=== PATIENT | male | born 1955 | race Caucasian/White ===

== ENCOUNTER 2019-10-06 20:36 | Outpatient (CLI) | payer MEDICARE | END 2019-10-06 23:59 | disposition EMS.NT | LOC: EMS 20:36 | PROVIDERS: ATTEND Surgery | DX: M54.9 Dorsalgia, unspecified (principal) ==

== ENCOUNTER 2019-10-06 21:59 | Emergency (ER) | payer MEDICARE ==
--- NOTE | 2019-10-06 22:15 | ED Physician Documentation ---
History of Present Illness - Stated complaint Stated Complaint: ABD PX/FLANK PX - Chief complaint Chief Complaint: Abd Pain - History obtained from History obtained from: Patient (Patient is a 64-year-old male who presents with left-sided flank pain that radiates around to the front with associated dysuria. He denies any history of kidney stones he denies any chest pain or fevers or shortness of breath or any history of AAA.) Review of Systems Constitutional: reports: Reviewed and negative Eyes: reports: Reviewed and negative Ears: reports: Reviewed and negative Nose: reports: Reviewed and negative Throat: reports: Reviewed and negative Cardiac: reports: Reviewed and negative Respiratory: reports: Reviewed and negative GI: reports: Reviewed and negative : reports: Other (Left-sided flank pain) Skin: reports: Reviewed and negative Musculoskeletal: reports: Reviewed and negative Neurologic: reports: Reviewed and negative Psychiatric: reports: Reviewed and negative Endocrine: reports: Reviewed and negative Immunocompromised: reports: Reviewed and negative PD PAST MEDICAL HISTORY - Present Medications Home Medications: Ambulatory Orders Medication Instructions Recorded Confirmed Hydrocodone/Acetaminophen [[place] 1 each PO Q6HR PRN #10 tablet 10/06/19 5-325 Tablet] Omeprazole 20 mg PO DAILY 10/06/19 10/06/19 Ondansetron Odt [Zofran Odt] 4 mg TL Q6H PRN #10 tablet 10/06/19 traZODone [Desyrel] 100 mg PO HS 10/06/19 10/06/19 - Allergies Allergies/Adverse Reactions: Allergies Allergy/AdvReac Type Severity Reaction Status Date / Time No Known Drug Allergies Allergy Verified 10/06/19 22:04 PD ED PE NORMAL - Vitals Vital signs reviewed: Yes - General General: Alert and oriented X 3, No acute distress, Well developed/nourished - HEENT HEENT: Atraumatic, PERRL - Neck Neck: Supple, no meningeal sign - Cardiac Cardiac: RRR, No murmur - Respiratory Respiratory: No respiratory distress, Clear bilaterally - Abdomen Abdomen: Normal bowel sounds, Soft, Non tender, Non distended, Other (No midline abdominal pulsatile mass) - Back Back: Other (Positive for left-sided CVA tenderness palpation) - Derm Derm: Warm and dry - Extremities Extremities: No deformity, No calf tenderness / cord - Neuro Neuro: Alert and oriented X 3, town administrator 2-12 intact, No motor deficit, No sensory deficit, Normal speech - Psych Psych: Normal mood, Normal affect Results - Vitals Vitals: Vital Signs - 24 hr 10/06/19 22:02 Temperature 36.2 C L Heart Rate 69 Respiratory 17 Rate Blood Pressure 164/92 H O2 Saturation 94 Oxygen O2 Source Room air - Labs Labs: Laboratory Tests 10/06/19 10/06/19 10/06/19 22:10 22:20 22:20 WBC 10.0 RBC 5.35 Hgb 16.8 Hct 48.3 MCV 90.3 MCH 31.4 H MCHC 34.8 RDW 12.8 Plt Count 207 MPV 10.7 Neut # (Auto) 7.8 H Lymph # (Auto) 1.3 L [place] # (Auto) 0.7 Eos # (Auto) 0.0 Baso # (Auto) 0.0 Absolute Nucleated RBC 0.00 Nucleated RBC % 0.0 PT 13.8 H INR 1.2 APTT 31.7 Sodium Potassium Chloride Carbon Dioxide Anion Gap BUN Creatinine Estimated GFR (MDRD) Glucose Calcium Total Bilirubin AST ALT Alkaline Phosphatase Total Protein Albumin Globulin Albumin/Globulin Ratio Lipase Urine Color YELLOW Urine Clarity CLEAR Urine pH 5.0 Ur Specific Crete >=1.030 H Urine Protein NEGATIVE Urine Glucose (UA) NEGATIVE Urine Ketones NEGATIVE Urine Occult Blood TRACE-INTA Urine Nitrite NEGATIVE Urine Bilirubin NEGATIVE Urine Urobilinogen 0.2 (NORMAL) Ur Leukocyte Esterase NEGATIVE Ur Microscopic Review NOT INDICATED Urine Culture Comments NOT INDICATED 10/06/19 22:20 WBC RBC Hgb Hct MCV MCH MCHC RDW Plt Count MPV Neut # (Auto) Lymph # (Auto) [place] # (Auto) Eos # (Auto) Baso # (Auto) Absolute Nucleated RBC Nucleated RBC % PT INR APTT Sodium 135 Potassium 3.9 Chloride 100 L Carbon Dioxide 26 Anion Gap 9.0 BUN 19 Creatinine 0.9 Estimated GFR (MDRD) 85 L Glucose 115 H Calcium 9.1 Total Bilirubin 0.9 AST 21 ALT 22 Alkaline Phosphatase 76 Total Protein 7.2 Albumin 4.3 Globulin 2.9 Albumin/Globulin Ratio 1.5 Lipase 35 Urine Color Urine Clarity Urine pH Ur Specific Crete Urine Protein Urine Glucose (UA) Urine Ketones Urine Occult Blood Urine Nitrite Urine Bilirubin Urine Urobilinogen Ur Leukocyte Esterase Ur Microscopic Review Urine Culture Comments PD MEDICAL DECISION MAKING - ED course Complexity details: reviewed results, re-evaluated patient, considered diffe rential (Nephrolithiasis, AAA, Diverticulitis), d/w patient (Patient regarding his results his history and exam are marked insistent with acute nephrolithiasis that is now resolved his imaging shows a 6 mm stone that is now in the bladder. His pain is resolved an extensive discussion with him about findings on CAT scan that showed a 3.5 cm infrarenal aortic aneurysm. The patient reports that about 3 years ago he was screened for an aortic aneurysm and reports that it was unremarkable he denies any history of AAA but does report that there is a strong family history. I did offer to transfer this patient to a higher level of care with vascular surgery as a consult however the patient's refusing to be transferred I feel this is reasonable given the fact that he is not hypotensive or tachycardic he is no shot he is not showing any signs of acute ruptured AAA however this appears to be an incidental finding however I did offer to transfer this patient to a higher level of care that has vascular surgery to evaluate the patient and the patient's refusing he does have medical decision-making capability and capacity and would except any and all risks to include sudden .) Departure - Departure Disposition: 01 Home, Self Care Clinical Impression: Left flank pain, Kidney stone on left side Aortic aneurysm Qualifiers: Aortic location: abdominal aorta Presence of rupture: without rupture Qualified Code(s): I71.4 - Abdominal aortic aneurysm, without rupture Condition: Stable Instructions: Kidney Stones, Aneurysm Abdominal Aortic Follow-Up: Provider,Other [Primary Care Provider] - Prescriptions: Hydrocodone/Acetaminophen [[place] 5-325 Tablet] 1 each PO Q6HR PRN #10 tablet PRN Reason: Pain Ondansetron Odt [Zofran Odt] 4 mg TL Q6H PRN #10 tablet PRN Reason: Nausea / Vomiting Comments: follow up with a vascular surgeon for your abdominal aortic aneurysm next week. hydrate well. return to the emergency department with any concerns.
[2019-10-06] MEDS ORDERED: HYDROmorphone 0.5 MG/0.5 ML SYRINGE IVP STA (22:25)
[2019-10-06] MEDS ORDERED: ONDANSETRON 4 MG/2 ML VIAL IVP STA (22:25)
[2019-10-06] MEDS ORDERED: SODIUM CHLORIDE 0.9% 1,000 ML IV ONE (22:25)
[2019-10-06] MEDS ORDERED: KETOROLAC 30 MG/ML VIAL IVP STA (22:25)
[2019-10-06 22:30] LABS: BASOPHILS % (AUTO) 0.4 %; EOSINOPHILS % (AUTO) 0.4 %; HGB - HEMOGLOBIN 16.8 g/dL (14.0-18.0); LYMPHOCYTES # (AUTO) 1.3 10^3/uL (1.5-3.5); LYMPHOCYTES % (AUTO) 12.6 %; MEAN CORPUSCULAR HEMOGLOBIN 31.4 pg (27.0-31.0); MEAN CORPUSCULAR HGB CONC 34.8 g/dL (32.0-36.0); MEAN CORPUSCULAR VOLUME 90.3 fL (80.0-94.0); MEAN PLATELET VOLUME 10.7 fL (7.4-11.4); MONOCYTES # (AUTO) 0.7 10^3/uL (0.0-1.0); MONOCYTES % (AUTO) 7.4 %; NEUTROPHILS # (AUTO) 7.8 10^3/uL (1.5-6.6); NEUTROPHILS % (AUTO) 78.4 %; PLT - PLATELET COUNT 207 10^3/uL (130-450); RED BLOOD COUNT 5.35 10^6/uL (4.70-6.10); RED CELL DISTRIBUTION WIDTH 12.8 % (12.0-15.0)
[2019-10-06 22:34] LABS: BILIRUBIN,URINE NEGATIVE (NEGATIVE); CLARITY,URINE CLEAR (CLEAR); GLUCOSE, URINE (UA) NEGATIVE (NEGATIVE); KETONES,URINE (UA) NEGATIVE (NEGATIVE); LEUKOCYTE ESTERASE, URINE NEGATIVE (NEGATIVE); NITRITE,URINE NEGATIVE (NEGATIVE); OCCULT BLOOD,URINE TRACE-INTA (NEGATIVE); PROTEIN,URINE NEGATIVE (NEGATIVE); UROBILINOGEN,URINE 0.2 (NORMAL) E.U./dL (NORMAL)
[2019-10-06 22:36] LABS: INR 1.2 (0.8-1.2); PT - PROTHROMBIN TIME 13.8 secs (9.9-12.6)
[2019-10-06 22:41] LABS: ALBUMIN 4.3 g/dL (3.2-5.5); ALBUMIN/GLOBULIN RATIO 1.5 (1.0-2.2); BILIRUBIN,TOTAL 0.9 mg/dL (0.2-1.0); CALCIUM 9.1 mg/dL (8.5-10.3); CREATININE 0.9 mg/dL (0.6-1.2); TOTAL PROTEIN 7.2 g/dL (6.7-8.2)
[2019-10-06 22:43] LABS: PARTIAL THROMBOPLASTIN TIME 31.7 secs (24.9-33.3)
--- NOTE | 2019-10-06 23:09 | CT Report ---
Reason: left flank pain Procedure Date: 10/06/2019 Accession Number: [id number] / [id number] Procedure: CT - Abdomen/Pelvis WO CPT Code: Final Report FULL RESULT: EXAM: CT ABDOMEN AND PELVIS (CT KUB) EXAM DATE: 10/06/2019 10:39 PM. CLINICAL HISTORY: Left flank pain. COMPARISONS: None. TECHNIQUE: Routine axial helical CT imaging was performed through the abdomen and pelvis without IV contrast. Reconstructions: Coronal and sagittal. In accordance with CT protocol optimization, one or more of the following dose reduction techniques were utilized for this exam: automated exposure control, adjustment of mA and/or KV based on patient size, or use of iterative reconstructive technique. FINDINGS: The lack of intravenous contrast limits evaluation of the solid organs and vascular structures. Imaged chest: Coronary artery disease. Liver: Unremarkable. Gallbladder: Unremarkable. Biliary: Unremarkable. Pancreas: Unremarkable. Spleen: Unremarkable. Adrenal glands: Unremarkable. Kidneys: There is mild fullness of the left renal collecting system. The right kidney is unremarkable. No nephrolithiasis. There is a simple appearing cyst within the lower pole left kidney. No imaging follow-up is recommended per consensus recommendations based on imaging criteria. Urinary bladder: There is a 6 mm stone at the left UVJ. Reproductive organs: Enlarged prostate Bowel: Pancolonic diverticulosis, most pronounced in the descending colon. No diverticulitis. Stomach: Unremarkable. Appendix: Not seen consistent with patient's history of appendectomy. Miscellaneous: No free fluid. No extraluminal gas. Aorta: Mild/moderate aortic atherosclerosis. There is an infrarenal aortic aneurysm measuring 3.5 cm in diameter. Lymph nodes: No pathologically enlarged lymph nodes identified. Bones: Status post left total hip arthroplasty. No suspicious osseous lesions. Sidewalls: Unremarkable. IMPRESSION: 1. Mild left renal collecting system fullness. There is a 6 mm bladder stone at the ureterovesicular junction. Findings likely represent sequela of recently passed stone. 2. Infrarenal aortic aneurysm measuring 3.5 cm in diameter. 3. Colonic diverticulosis. No diverticulitis. 4. Other chronic findings detailed above. [facility]
[2019-10-06 23:59] VITALS: BP 137/82
== END 2019-10-06 23:59 | disposition home or self-care (01) ==
LOC: ED 21:59
DX: R10.9 Unspecified abdominal pain (principal); N21.0 Calculus in bladder; I71.4 Abdominal aortic aneurysm, without rupture
CPT/HCPCS: 36415; 74176; 80053; 81001; 81003; 83690; 85025; 85610; 85730; 87086; 96360; 99283